=== PATIENT | female | born 1975 | race African-American/Black ===

== ENCOUNTER 2017-08-07 07:51 | Emergency (ER) | END 2017-08-07 13:10 | disposition home or self-care (01) ==

== ENCOUNTER 2017-10-20 09:15 | Emergency (ER) | END 2017-10-20 15:22 | disposition home or self-care (01) ==

== ENCOUNTER 2018-11-29 16:16 | Emergency (ER) | payer SELFPAY ==
[~2018-11-29] VITALS: Ht 154.9 cm; Wt 69.6 kg
[~2018-11-29 16:16] MED LIST: ONDA4TAB8 PO
[2018-11-29 16:38] VITALS: BP 126/69; PULSE 66; RESP 18; Ht 154.9 cm; Wt 69.6 kg
== END 2018-11-29 19:14 | disposition left against medical advice (07) ==
LOC: E/R 16:16
DX: Z53.21 Procedure and treatment not carried out due to patient leaving prior to being seen by health care provider (principal)
CPT/HCPCS: 93005